=== PATIENT | female | born 1980 | race Caucasian/White ===

== ENCOUNTER 2017-01-21 12:54 | Inpatient (IN) | payer OTHER ==
[~2017-01-21] VITALS: Ht 175.3 cm; Wt 76.4 kg
[~2017-01-21 12:54] MED LIST: CIPRO500 MG PO; DARVOCET N 1001 TAB PO
[2017-01-21] MEDS ORDERED: NEURONTIN300 MG PO ×2 (14:06→14:07)
[2017-01-21] MEDS ORDERED: MAGNESIUM250 M1 PO (14:07)
[2017-01-21] MEDS ORDERED: FIORICET 50-301 EACH PO (14:08)
[2017-01-21] MEDS ORDERED: IMITREX PO (14:08)
[2017-01-21] MEDS ORDERED: MELATONIN5 M7 PO (14:10)
[2017-01-21] MEDS ORDERED: CYMBALTA60 MG PO (14:10)
[2017-01-21] MEDS ORDERED: ZOFRAN4 MG PO (14:11)
[2017-01-21 15:14] LABS: BASO % 0.3 % (0.0-1.0); EOS % 0.6 % (1.0-4.0); HEMATOCRIT 42.7 % (37.0-47.0); HEMOGLOBIN 14.2 g/dl (12.0-16.0); LYMPH # 1.2 10*3/uL (1.3-4.4); LYMPH % 17.1 % (27.0-41.0); MEAN CELL VOLUME 90.7 fl (81.0-99.0); MEAN CORPUSCULAR HGB 30.1 pg (27.0-31.0); MEAN CORPUSCULAR HGB CONC 33.3 g/dl (33.0-37.0); MEAN PLATELET VOLUME 10.9 fl (9.6-12.3); MONO # 0.4 10*3/uL (0.1-1.0); MONO % 5.9 % (3.0-9.0); NEUT # 5.1 10*3/uL (2.3-7.9); PLATELET COUNT AUTOMATED 199 10*3/uL (130-400); RED BLOOD COUNT 4.71 10*6/uL (4.10-5.10); RED CELL DISTRI WIDTH 12.4 % (0-14.5); WHITE BLOOD COUNT 6.8 10*3/uL (4.8-10.8)
[2017-01-21 15:28] LABS: ALBUMIN 3.7 gm/dl (3.1-4.5); ALKALINE PHOSPHATASE 103 U/L (45-117); BILIRUBIN, TOTAL 0.4 mg/dl (0.2-1.0); BUN 13 mg/dl (7-24); CARBON DIOXIDE 25 mmol/L (21-32); CHLORIDE 104 mmol/L (98-107); EST GLOM FILT AFRICAN AMERICAN > 60 ml/min; GLUCOSE 76 mg/dL (65-99); POTASSIUM 4.1 mmol/L (3.5-5.1); SGOT/AST 21 IU/L (3-35); SGPT/ALT 44 U/L (12-78); SODIUM 140 mmol/L (136-145); TOTAL PROTEIN 7.7 gm/dL (6.4-8.2)
[2017-01-21 15:33] LABS: PROTHROMBIN TIME 10.9 SECONDS (9.0-12.4)
[2017-01-21 15:59] LABS: URINE AMPHETAMINES < 1000 (1000ng/ml); URINE BARBITURATES > 200 (200ng/ml); URINE COCAINE < 300 (300ng/ml)
[2017-01-21 16:00] VITALS: BP 107/61
[2017-01-21 16:11] LABS: BILIRUBIN 1+ (NEGATIVE); BLOOD NEGATIVE (NEGATIVE); CLARITY CLEAR (CLEAR); COLOR YELLOW (YELLOW); GLUCOSE NEGATIVE (NEGATIVE); KETONE 3+ (NEGATIVE); LEUKO ESTERASE NEGATIVE (NEGATIVE); NITRITE NEGATIVE (NEGATIVE); PROTEIN TRACE (NEGATIVE); SPECIFIC GRAVITY 1.025 (1.005-1.030)
[2017-01-21 16:17] LABS: BACTERIA TRACE; MUCOUS 2+; RBC 0-2 rbc/hpf (0-2); URINE REFLEX COMMENT NO (NO)
[2017-01-21 20:00] VITALS: BP 117/77
[2017-01-22] VITALS: BP 120/64
[2017-01-22 04:00] VITALS: BP 107/42
[2017-01-22 08:00] VITALS: BP 148/56
[2017-01-22 12:00] VITALS: BP 120/56
[2017-01-22 16:00] VITALS: BP 122/76
[2017-01-22 20:00] VITALS: BP 112/55
[2017-01-23] VITALS: BP 105/61
[2017-01-23 08:00] VITALS: BP 113/50
[2017-01-23 12:00] VITALS: BP 106/75
[2017-01-23 16:00] VITALS: BP 117/58
[2017-01-23 20:00] VITALS: BP 129/71
[2017-01-24] VITALS: BP 113/58
[2017-01-24 05:53] LABS: BASO % 0.5 % (0.0-1.0); EOS # 0.2 10*3/uL (0.0-0.4); EOS % 2.9 % (1.0-4.0); HEMATOCRIT 37.3 % (37.0-47.0); HEMOGLOBIN 12.2 g/dl (12.0-16.0); LYMPH # 1.8 10*3/uL (1.3-4.4); LYMPH % 33.3 % (27.0-41.0); MEAN CELL VOLUME 94.4 fl (81.0-99.0); MEAN CORPUSCULAR HGB 30.9 pg (27.0-31.0); MEAN CORPUSCULAR HGB CONC 32.7 g/dl (33.0-37.0); MEAN PLATELET VOLUME 11.1 fl (9.6-12.3); MONO # 0.6 10*3/uL (0.1-1.0); MONO % 11.7 % (3.0-9.0); NEUT # 2.8 10*3/uL (2.3-7.9); NEUT % 51.4 % (47.0-73.0); PLATELET COUNT AUTOMATED 168 10*3/uL (130-400); RED BLOOD COUNT 3.95 10*6/uL (4.10-5.10); RED CELL DISTRI WIDTH 12.7 % (0-14.5); WHITE BLOOD COUNT 5.5 10*3/uL (4.8-10.8)
[2017-01-24 05:59] LABS: EST GLOM FILT AFRICAN AMERICAN > 60 ml/min
[2017-01-24 08:00] VITALS: BP 100/52
[2017-01-24 12:00] VITALS: BP 120/58
[2017-01-24 20:00] VITALS: BP 112/52
[2017-01-25] VITALS: BP 112/56
[2017-01-25 04:00] VITALS: BP 98/52
[2017-01-25 08:00] VITALS: BP 124/72
[2017-01-25] MEDS ORDERED: ROPINIROLE HYD0.5 MG PO (11:05)
[2017-01-25] MEDS ORDERED: LOPERAMIDE HCL2 MG PO (11:05)
[2017-01-25] MEDS ORDERED: ATARAX,VISTARIL50 MG PO (11:05)
== END 2017-01-25 13:15 | disposition home or self-care (01) | DRG 897 ==
LOC: 4E 12:54
PROVIDERS: Internal Medicine
DX: F11.23 Opioid dependence with withdrawal (principal); F32.9 Major depressive disorder, single episode, unspecified; G47.00 Insomnia, unspecified; F41.9 Anxiety disorder, unspecified; G43.909 Migraine, unspecified, not intractable, without status migrainosus; N20.0 Calculus of kidney; Z71.6 Tobacco abuse counseling; Z98.51 Tubal ligation status; Z80.3 Family history of malignant neoplasm of breast; Z80.49 Family history of malignant neoplasm of other genital organs; Z79.899 Other long term (current) drug therapy; Z79.1 Long term (current) use of non-steroidal anti-inflammatories (NSAID); Z72.0 Tobacco use